=== PATIENT | male | born 1945 | race Caucasian/White ===

== ENCOUNTER 2022-01-16 09:49 | Emergency (ER) | payer MEDICARE, MEDICAID ==
[~2022-01-16] VITALS: Ht 170.2 cm; Wt 75.0 kg
[2022-01-16 09:57] VITALS: BP 118/77
== END 2022-01-16 11:21 | disposition home or self-care (01) ==
LOC: ER 09:49
DX: Z13.9 Encounter for screening, unspecified (principal); R05.9 Cough, unspecified; E11.9 Type 2 diabetes mellitus without complications; Z20.822 Contact with and (suspected) exposure to COVID-19; Z98.890 Other specified postprocedural states
CPT/HCPCS: 87426; 99283; C9803